=== PATIENT | male | born 1955 | race African-American/Black ===

== ENCOUNTER 2023-04-23 09:43 | Emergency (ER) | payer OTHER, MEDICAID ==
[~2023-04-23] VITALS: Ht 180.3 cm; Wt 94.0 kg
[~2023-04-23 09:43] MED LIST: INSNOV SUBCUT; INSU100I24 SQ; LEVO-65 MT; METO-539 PO; TAMS-11 MT
[2023-04-23 10:05] VITALS: TEMP 98.3; O2SAT 98
[2023-04-23 12:51] LABS: CLARITY URINE TURBID (CLEAR); GLUCOSE URINE NEGATIVE (NEGATIVE); KETONES URINE NEGATIVE (NEGATIVE); LEUKOCYTE ESTERASE URINE 2+ (NEGATIVE); NITRITE URINE NEGATIVE (NEGATIVE); OCCULT BLOOD URINE 2+ (NEGATIVE); PROTEIN URINE 2+ (NEGATIVE); SPECIFIC GRAVITY URINE 1.024 (1.005-1.030); UROBILINOGEN URINE 0.2 E.U./dL (0.2-1.0)
[2023-04-23 12:55] LABS: COLOR URINE BLOODY (YELLOW)
[2023-04-23] MEDS ORDERED: CEFTRIAXONE SODIUM 1 G/VIAL IM ONE (13:00)
[2023-04-23] MEDS ORDERED: LIDOCAINE HCL/PF 1% 10 MG/ML 5ML VIAL INFIL ONE (13:00)
[2023-04-23 13:04] LABS: RBC URINE TNTC /hpf (0-2)
[2023-04-23 13:05] LABS: BACTERIA URINE 4+; SQUAMOUS EPITHELIAL CELL URINE NONE SEEN /lpf (RARE/1+)
[2023-04-23] MEDS ORDERED: ACETAMINOPHEN 325MG TABLET PO NR (13:13)
[2023-04-23] MEDS ORDERED: CIPR500T5 PO (13:18)
[2023-04-23] MEDS ORDERED: ACET-2708 PO (13:18)
[2023-04-23 14:00] VITALS: BP 138/76; PULSE 70; RESP 15
[2023-04-26] MEDS ORDERED: NITR100C MT (18:44)
== END 2023-04-23 14:01 | disposition home or self-care (01) ==
LOC: ER 09:43
DX: N39.0 Urinary tract infection, site not specified (principal); E11.9 Type 2 diabetes mellitus without complications; I10 Essential (primary) hypertension
CPT/HCPCS: 99284; 81003; 87086; 87186; 87077; 51702; 96372; J0696; J3490

== ENCOUNTER 2023-05-10 08:48 | Emergency (ER) | payer OTHER, MEDICAID ==
[~2023-05-10] VITALS: Ht 180.3 cm; Wt 93.0 kg
[~2023-05-10 08:48] MED LIST changes: +ACET-2708 PO; +CIPR500T5 PO; +NITR100C MT
[2023-05-10 09:07] VITALS: BP 157/85; PULSE 79; RESP 16; TEMP 98.1; O2SAT 98
== END 2023-05-10 10:01 | disposition home or self-care (01) ==
LOC: ER 08:48
DX: R33.9 Retention of urine, unspecified (principal)
CPT/HCPCS: 99281

== ENCOUNTER 2025-01-13 12:07 | Emergency (ER) | payer BC, MEDICAID ==
[~2025-01-13] VITALS: Ht 172.7 cm; Wt 78.0 kg
[~2025-01-13 12:07] MED LIST changes: -TAMS-11 MT; +TAMS-54 MT
[2025-01-13 12:27] VITALS: O2SAT 99
[2025-01-13 13:07] LABS: CLARITY URINE CLOUDY (CLEAR); COLOR URINE BLOODY (YELLOW); GLUCOSE URINE 3+ (NEGATIVE); KETONES URINE NEGATIVE (NEGATIVE); LEUKOCYTE ESTERASE URINE NEGATIVE (NEGATIVE); NITRITE URINE NEGATIVE (NEGATIVE); OCCULT BLOOD URINE 3+ (NEGATIVE); PH URINE 6.5 (4.5-8.0); PROTEIN URINE 3+ (NEGATIVE)
[2025-01-13 13:11] LABS: SPECIFIC GRAVITY URINE 1.027 (1.005-1.030)
[2025-01-13 13:14] LABS: BASOPHILS % 0.9 % (0.0-2.0); EOSINOPHILS % 2.3 % (0.0-5.0); HEMATOCRIT. 41.9 % (42.0-52.0); HEMOGLOBIN. 13.4 g/dL (14.0-18.0); LYMPHOCYTES % 32.8 % (20.0-50.0); MEAN CORPUSCULAR HEMOGLOBIN 27.1 pg (28.0-32.0); MEAN CORPUSCULAR VOLUME 84.9 fL (80.0-94.0); MEAN PLATELET VOLUME 8.7 fl (7.4-10.4); MONOCYTES % 11.4 % (2.0-8.0); NEUTROPHILS % 52.6 % (40.0-76.0); PLATELET 243 x1000/uL (130-400); RED BLOOD CELL COUNT 4.94 mill/uL (4.7-6.1); RED CELL DISTRIBUTION WIDTH 14.2 % (11.6-14.6)
[2025-01-13 13:17] LABS: RBC URINE TNTC /hpf (0-2)
[2025-01-13 13:18] LABS: BACTERIA URINE NONE SEEN; SQUAMOUS EPITHELIAL CELL URINE NONE SEEN /lpf (RARE/1+); WBC URINE NONE SEEN /hpf (0-2)
[2025-01-13 13:19] LABS: CHLORIDE 109 mEq/L (98-107); POTASSIUM 4.9 mEq/L (3.5-5.1); SODIUM 141 mEq/L (136-145)
[2025-01-13 13:21] LABS: CALCIUM 9.3 mg/dL (8.7-10.4); CARBON DIOXIDE 25 mEq/L (21-32)
[2025-01-13 13:26] LABS: CREATININE 0.8 mg/dL (0.6-1.3); GLUCOSE 124 mg/dL (70-105); UREA NITROGEN BLOOD 12 mg/dL (9-23)
[2025-01-13 13:28] LABS: ALANINE AMINOTRANSFERASE 42 IU/L (10-49); ALBUMIN 4.2 g/dL (3.2-4.8); ASPARTATE AMINOTRANSFERASE 34 IU/L (<34); BILIRUBIN DIRECT 0.2 mg/dL (<=3.0); BILIRUBIN TOTAL 0.4 mg/dL (0.1-1.0)
[2025-01-13 15:26] VITALS: BP 133/76; PULSE 92; RESP 18; TEMP 36.8; O2SAT 99
== END 2025-01-13 15:30 | disposition home or self-care (01) ==
LOC: ER 12:07
DX: R31.9 Hematuria, unspecified (principal); I10 Essential (primary) hypertension; E11.9 Type 2 diabetes mellitus without complications; Z79.899 Other long term (current) drug therapy; Z79.4 Long term (current) use of insulin
CPT/HCPCS: 36415; 80048; 80076; 81003; 85025; 99283